=== PATIENT | male | born 1945 | race Caucasian/White ===

== ENCOUNTER 2024-02-18 13:48 | Outpatient (CLI) | payer OTHER, SELFPAY | END 2024-02-18 13:49 | disposition home or self-care (01) | LOC: RAD 13:53 | DX: I25.9 Chronic ischemic heart disease, unspecified (principal) | CPT/HCPCS: 93306 ==

== ENCOUNTER 2025-01-31 13:56 | Outpatient (CLI) | payer OTHER, SELFPAY | END 2025-01-31 13:57 | disposition home or self-care (01) | LOC: US 13:57 | PROVIDERS: Visit Provider Chiropractor | DX: I73.9 Peripheral vascular disease, unspecified (principal) | CPT/HCPCS: 93922 ==